=== PATIENT | female | born 1990 | race Caucasian/White ===

== ENCOUNTER 2018-09-10 10:56 | Emergency (ER) | payer BC ==
[~2018-09-10] VITALS: Ht 157.5 cm; Wt 99.3 kg
--- OUTSIDE RECORDS SUMMARY | 2018-09-10 10:59 | XMS REPORT | Continuity of Care Document ---
Author Author [facility] [place] [facility] Address Unknown Phone Unavailable Problems Problem Status Onset Date Classification Date Reported Comments Source Urinary tract infectious disease 01/02/2017 Diagnosis 01/02/2017 [facility] Candidiasis of vagina 01/02/2017 Diagnosis 01/02/2017 [facility] Body mass index 40+ - severely obese 01/02/2017 Diagnosis 01/02/2017 [facility] Medications Medication Details Route Status Patient Instructions Ordering Provider Order Date Source Azithromycin 250 MG Oral Tablet azithromycin 250 mg tablet Active [facility] Ciprofloxacin 500 MG Oral Tablet [Cipro] Cipro 500 mg tablet Take 1 tablet every 12 hours by oral route with meals for 5 days. Active [facility] Ciprofloxacin 3 MG/ML / Dexamethasone 1 MG/ML Otic Suspension [Ciprodex] Ciprodex 0.3 %-0.1 % ear drops,suspension INSTILL FOUR (4) DROPS INTO LEFT EAR TWICE A DAY. Active [facility] Clindamycin 300 MG Oral Capsule clindamycin 300 mg capsule TAKE ONE (1) CAPSULE(S) BY MOUTH EVERY EIGHT HOURS UNTIL ALL TAKEN. Active [facility] Fluconazole 150 MG Oral Tablet [Diflucan] Diflucan 150 mg tablet 150 mg PO q72h x2 doses Active [facility] Hydrocortisone 25 MG/ML Topical Cream hydrocortisone 2.5 % topical cream APPLY ONE (1) APPLICATION TOPICALLY TO AFFECTED AREA TWICE A DAY. Active [facility] Hydrocortisone 10 MG/ML / Neomycin 3.5 MG/ML / Polymyxin B 68601 UNT/ML Otic Suspension mqnbltri-damchwrdg-xrigxnkbx 3.5 mg-10,000 unit/mL-1 % ear drops,susp INSTILL FOUR (4) DROPS INTO EACH EAR THREE TIMES A DAY. Active [facility] Ondansetron 4 MG Disintegrating Oral Tablet ondansetron 4 mg disintegrating tablet Active [facility] pantoprazole 40 MG Delayed Release Oral Tablet pantoprazole 40 mg tablet,delayed release Active [facility] Phenazopyridine hydrochloride 100 MG Oral Tablet [Pyridium] Pyridium 100 mg tablet Take 1 tablet 3 times a day by oral route. Active [facility] Sulfamethoxazole 800 MG / Trimethoprim 160 MG Oral Tablet sulfamethoxazole 800 mg-trimethoprim 160 mg tablet Active [facility] Suprep Bowel Prep Kit 17.5 gram-3.13 gram-1.6 gram oral solution Suprep Bowel Prep Kit 17.5 gram-3.13 gram-1.6 gram oral solution Active [facility] tramadol hydrochloride 50 MG Oral Tablet tramadol 50 mg tablet Active [facility] Allergies, Adverse Reactions, Alerts Substance Category Reaction Severity Reaction type Status Date Reported Comments Source Amoxicillin Nausea Allergy to substance 01/02/2017 [facility] Immunizations Immunization Date Given Site Status Last Updated Comments Source Tdap 12/14/2010 completed [facility] Results Order Name Results Value Reference Range Date Interpretation Comments Source Urinalysis macro (dipstick) panel - Urine COLOR : Yellow 01/02/2017 [facility] Urinalysis macro (dipstick) panel - Urine CLARITY : Cloudy 01/02/2017 [facility] Urinalysis macro (dipstick) panel - Urine LEUKOCYTES : Small 01/02/2017 [facility] Urinalysis macro (dipstick) panel - Urine NITRITES : Negative 01/02/2017 [facility] Urinalysis macro (dipstick) panel - Urine UROBILINOGEN : Normal 01/02/2017 [facility] Urinalysis macro (dipstick) panel - Urine PROTEIN : 30 01/02/2017 [facility] Urinalysis macro (dipstick) panel - Urine pH : 6.0 01/02/2017 [facility] Urinalysis macro (dipstick) panel - Urine BLOOD : Moderate 01/02/2017 [facility] Urinalysis macro (dipstick) panel - Urine SPECIFIC GRAVITY : 1.010 01/02/2017 [facility] Urinalysis macro (dipstick) panel - Urine KETONES : Negative 01/02/2017 [facility] Urinalysis macro (dipstick) panel - Urine BILIRUBIN : Negative 01/02/2017 [facility] Urinalysis macro (dipstick) panel - Urine GLUCOSE Negative 01/02/2017 [facility] Vital Signs Vital Sign Value Date Comments Source Diastolic (mm Hg) 76 01/02/2017 [facility] Height 62 01/02/2017 [facility] Systolic (mm Hg) 118 01/02/2017 [facility] Weight 220 01/02/2017 [facility] Encounters Location Location Details Encounter Type Encounter Number Reason For Visit Attending Provider ADM Date DC Date Status Source [place] - [facility] [id number] Michelle Rodriguez, [employer]: [address] [place] [address], Ph. [phone] [id number] Michelle Rodriguez 01/02/2017 [facility] Procedures Procedure Code Date Perfomer Comments Source
--- OUTSIDE RECORDS SUMMARY | 2018-09-10 10:59 | XMS REPORT | Encounter Summary ---
Author Organization Unknown Address [address] [place] [address] Phone [phone] Reason for Visit Medical Complaint Instructions 1. Urinary tract infectious disease urinalysis, dipstick urinary tract infection in women: care instructions culture, urine Cipro 500 mg tablet Pyridium 100 mg tablet 2. Candidiasis of vagina vaginal yeast infection: care instructions Diflucan 150 mg tablet 3. Body mass index 40+ - severely obese body mass index: care instructions Discussion Note: None recorded. Plan of Care Patient Instructions *Drink plenty of fluids and/or cranberry juice. *Avoid alcohol/ caffeine. *Wipe from front to back after voiding, and always void after intercourse. *Avoid soaking in bubble baths/ hot tubs/ swimming *Avoid any sexual activity until symptoms have completely resolved. *In the future when symptoms have resolved, may take AZO OTC before sexual activity to help prevent UTIs. *Take medication(s) as prescribed for the indicated length of time. *If no improvement in 3 days, or if you develop new or worsening symptoms (such as high fever, nausea/vomiting, severe flank pain, or blood in your urine), follow up with a primary care provider or go to the nearest Emergency Room. Follow up with PCP regarding the maintenance of your overall health, weight management, dietary and exercise counseling. Reminders Provider Appointments None recorded. Lab Urinalysis, Dipstick 01/02/2017 [facility] Culture, Urine 01/02/2017 [facility] Referral None recorded. Procedures None recorded. Surgeries None recorded. Imaging None recorded. Medications Name Start Date azithromycin 250 mg tablet Cipro 500 mg tablet Take 1 tablet every 12 hours by oral route with meals for 5 days. Ciprodex 0.3 %-0.1 % ear drops,suspension INSTILL FOUR (4) DROPS INTO LEFT EAR TWICE A DAY. clindamycin 300 mg capsule TAKE ONE (1) CAPSULE(S) BY MOUTH EVERY EIGHT HOURS UNTIL ALL TAKEN. Diflucan 150 mg tablet 150 mg PO q72h x2 doses hydrocortisone 2.5 % topical cream APPLY ONE (1) APPLICATION TOPICALLY TO AFFECTED AREA TWICE A DAY. ecrpzhkw-fanhwomym-rgxujjtng 3.5 mg-10,000 unit/mL-1 % ear drops,susp INSTILL FOUR (4) DROPS INTO EACH EAR THREE TIMES A DAY. ondansetron 4 mg disintegrating tablet pantoprazole 40 mg tablet,delayed release Pyridium 100 mg tablet Take 1 tablet 3 times a day by oral route. sulfamethoxazole 800 mg-trimethoprim 160 mg tablet Suprep Bowel Prep Kit 17.5 gram-3.13 gram-1.6 gram oral solution tramadol 50 mg tablet Medications Administered None recorded. Vitals Height Weight BMI Blood Pressure 5 ft 2 in 220 lbs 40.2 kg/m2 118/76 mm[Hg] Lab Results Date Name Specimen Result Interpretation Description Value Range Status Address Urinalysis, Dipstick Color : Yellow [facility]: [address] [place] [address] Clarity : Cloudy [facility]: [address] [place] [address] Leukocytes : Small [facility]: [address] [place] [address] Nitrites : Negative [facility]: [address] [place] [address] Urobilinogen : Normal [facility]: [address] [place] [address] Protein : 30 [facility]: [address] [place] [address] Ph : 6.0 [facility]: [address] [place] [address] Blood : Moderate [facility]: [address] [place] [address] Specific Loa : 1.010 [facility]: [address] [place] [address] Ketones : Negative [facility]: [address] [place] [address] Bilirubin : Negative [facility]: [address] [place] [address] Glucose Negative [facility]: [address] [place] [address] Allergies Code Code System Name Reaction Severity Status Onset 723 RxNorm Amoxicillin Nausea Active Problems None recorded. Procedures None recorded. Vaccine List Vaccine Type Tdap 12/14/2010 Social History Smoking Status Never Smoker Past Encounters 01/02/2017 Urinary Tract Infectious Disease; Candidiasis of Vagina; Body Mass Index 40+ - Severely Obese [facility]: [address] [place] [address], Ph. [phone] History of Present Illness Mjaedw-WCR-Hvpswct Reported By: Patient HPI: Location: urethra. Quality: pain, burning. Severity: improving, moderate. Duration: started 2 days, intermittent. Onset/Timing: better, gradual. Context: no known exposure to STD, no prior history of STDs, sexually active. Associated Symptoms: no fever/chills, no flank pain, no jaundice, no blood in the urine, no vaginal discharge, no blisters on genitals, no rash on genitals, no muscle aches, no headache, pain during urination; lower abdominal pain on pressure; low back pain Review of Systems Basic Reported By: Patient Constitutional: Constitutional: no fever Tfdp-Ctip-Idzlr-Throat: Mouth/Throat: no sore throat Cardiovascular: Cardiovascular: no chest pain, no shortness of breath Respiratory: Respiratory: no cough, no wheezing, no shortness of breath Gastrointestinal: Gastrointestinal: no abdominal pain, no vomiting / diarrhea Genitourinary: Genitourinary: no discharge, dysuria Musculoskeletal: Musculoskeletal: no muscle aches, no muscle weakness, no arthralgias/joint pain, back pain Skin: Skin: no rashes Neurologic: Neurologic: no loss of consciousness, no weakness, no numbness, no seizures, no dizziness, no headaches Physical Exam Adult Basic, Adult Female Complete Reported By: Patient Constitutional: General Appearance: healthy-appearing, well-nourished, well-developed. Level of Distress: NAD. Ambulation: ambulating normally Psychiatric: Mental Status: active and alert. Orientation: to time, to place, to person Neck: Neck: supple, trachea midline, no masses, FROM. Lymph Nodes: no cervical LAD, no supraclavicular LAD, no axillary LAD, no inguinal LAD. Thyroid: no enlargement, non-tender, no nodules Lungs: Respiratory effort: no dyspnea, no tachypnea, no use of accessory muscles, no intercostal retractions. Auscultation: breath sounds normal Cardiovascular: Heart Auscultation: RRR, no murmurs. Neck vessels: no carotid bruits. Pulses including femoral / pedal: normal throughout Neurologic: Gait and Station: normal gait, normal station Skin: Inspection and palpation: no rash Abdomen: Bowel Sounds: normal. Inspection and Palpation: soft, non-distended, no tenderness, no guarding, no rebound tenderness, no masses, no CVA tenderness. Liver: non-tender, no hepatomegaly. Spleen: non-tender, no splenomegaly. Hernia: ; suprapubic tenderness on deep palpation Female : Bladder and Urethra: ; denied exam
--- NOTE | 2018-09-10 11:09 | NUR ---
TO ROOM ON ARRIVAL DOING EVAL
--- NOTE | 2018-09-10 11:13 | NUR ---
PT STATES SHE DOESNT HAVE TIME TO WAIT FOR ULTRASOUND ARRIVAL AND DOES NOT WANT TO WAIT FOR TESTING AND RESULTING. STATES SHE "CANT WAIT." PT TO F/U WITH PCP
--- NOTE | 2018-09-10 11:23 | NUR ---
PT ASKED ON ARRIVAL IF FACILITY DOES ULTRASOUNDS, PT WAS INFORMED OF CAPABILITY AND ULTASOUND IS CALLED IN AND PT WENT STRAIGHT TO ROOM WITHOUT ANY DELAY AND MD SAW PT IMMEDIATELY AND PT STATES SHE WANTED AN ULTRASOUND AND MD STATES HE WOULD ORDER ULTRASOUND AND UA AND UPT AND PT GIVEN URINE CUP AND INFOMRED OF PLAN OF CARE BY MD; PT ASKED FOR ETA, PT INFORMED OF 45 MINS CALL IN TIME FOR US, 30-45 MINS OF TESTING FOR ULTRASOUND AND 30-60 MINS FOR RESULTS, PT BECAME IMMEDIATELY ANNOYED STANDING UP AND HANDING URINE CUP TO MD STATING SHE COULD NOT WAIT THAT LONG AND LEFT OUT OF ROOM CHECKING OUT WITH REGISTRATION.
== END 2018-09-10 11:15 | disposition left against medical advice (07) ==
LOC: FSED 10:56
DX: R10.2 Pelvic and perineal pain (principal); R11.0 Nausea
CPT/HCPCS: 99282